=== PATIENT | male | born 1975 | race Caucasian/White ===

== ENCOUNTER 2018-05-28 21:58 | Emergency (ER) | payer SELFPAY ==
[2018-05-28 21:58] VITALS: BMI 24.7
[2018-05-28 22:09] VITALS: RESP 20; O2SAT 97
--- NOTE | 2018-05-28 22:22 | C.PDOC ---
History Of Present Illness Patient reports 4 day history of fever and body aches. Denies headache, cough, congestion, nausea, vomiting, abdominal pain. Reports that he had diarrhea, which subsided after taking an antidiarrheal. States that he has been taking motrin for his fever which brings it down, but then the fever returns. No recent travel or sick contacts. Time Seen by Provider: 05/28/18 22:12 Chief Complaint (Nursing): Medical Clearance Past Medical History Reviewed: Historical Data, Nursing Documentation, Vital Signs Vital Signs: Last Vital Signs Temp 100.6 F H 05/28/18 22:02 Pulse 114 H 05/28/18 22:02 Resp 20 05/28/18 22:02 BP 122/76 05/28/18 22:02 Pulse Ox 97 05/28/18 22:02 - Medical History PMH: Gastritis (no meds) Family History: States: Unknown Family Hx - Social History Hx Tobacco Use: No Hx Alcohol Use: No Hx Substance Use: No - Immunization History Hx Tetanus Toxoid Vaccination: No Hx Influenza Vaccination: No Hx Pneumococcal Vaccination: No Review Of Systems Except As Marked, All Systems Reviewed And Found Negative. Constitutional: Positive for: Fever, Chills ENT: Negative for: Nose Congestion, Throat Pain, Throat Swelling Cardiovascular: Negative for: Chest Pain Respiratory: Negative for: Cough, Shortness of Breath Gastrointestinal: Positive for: Diarrhea. Negative for: Nausea, Vomiting, Abdominal Pain Musculoskeletal: Positive for: Other (myalgias, especially in the legs) Skin: Negative for: Rash Neurological: Negative for: Altered Mental Status Physical Exam - Physical Exam Appears: Well, Non-toxic, No Acute Distress Skin: Normal Color, Warm, Dry Head: Normacephalic Eye(s): bilateral: Normal Inspection Oral Mucosa: Moist Cardiovascular: Rhythm Regular Respiratory: Normal Breath Sounds Gastrointestinal/Abdominal: Normal Exam, Soft, No Tenderness Extremity: Bilateral: Atraumatic Neurological/Psych: Oriented x3 Gait: Steady (ambulates without difficulty) ED Course And Treatment O2 Sat by Pulse Oximetry: 97 Medical Decision Making Medical Decision Making: Patient given tylenol PO for continued fever. Patient took motrin about 3 hours prior to arrival. On re-eval patient sleeping comfortably. Patient with 4 days of symptoms, Tamiflu not likely to be effective at this point. Advised continuing supportive care with antipyretics. Return to the ED for any new or worsening symptoms. At discharge HR 99. Disposition - Disposition Disposition: HOME/ ROUTINE Disposition Time: 23:05 Condition: STABLE Additional Instructions: BRANDEN BAEZA, thank you for letting us take care of you today. Your provider was Aziza Torrez MD and you were treated for FEVER. The emergency medical care you received today was directed at your acute symptoms. If you were prescribed any medication, please fill it and take as directed. It may take several days for your symptoms to resolve. Return to the Emergency Department if your symptoms worsen, do not improve, or if you have any other problems. Please contact your doctor or call one of the physicians/clinics you have been referred to that are listed on the Patient Visit Information form that is included in your discharge packet. Bring any paperwork you were given at discharge with you along with any medications you are taking to your follow up visit. Our treatment cannot replace ongoing medical care by a primary care provider outside of the emergency department. Thank you for allowing the [facility] team to be part of your care today. If you had an X-Ray or CT scan: A Radiologist will review the ED reading if any change in treatment is needed we will contact you. If you had a blood, urine, or wound culture: It will take several days for the results, if any change in treatment is needed we will contact you. If you had an STI test: It will take 48 hours for the results. Please call after 1 week if you have not heard back. Forms: [employer] ([employer]) - Clinical Impression Clinical Impression: Flu-like symptoms
[2018-05-28 23:13] VITALS: BP 119/68; PULSE 97; TEMP 100
== END 2018-05-28 23:13 | disposition home or self-care (01) ==
LOC: C.ER 21:58
DX: J11.1 Influenza due to unidentified influenza virus with other respiratory manifestations (principal)